=== PATIENT | female | born 1955 | race Caucasian/White ===

== ENCOUNTER 2023-11-12 16:18 | Outpatient (CLI) | payer MEDICARE, BC ==
[~2023-11-12 16:18] MED LIST: CALCIUM CHEWS; METH-375 PO; METH5TAB PO; PROP10TA10 PO; [UNRECOGNIZED DRUG - CODE] PO
== END 2023-11-12 23:59 | disposition home or self-care (01) ==
LOC: MRI 16:18
PROVIDERS: ATTEND Family Medicine Sports Medicine
DX: S83.242A Other tear of medial meniscus, current injury, left knee, initial encounter (principal); M17.12 Unilateral primary osteoarthritis, left knee; M25.462 Effusion, left knee; M85.68 Other cyst of bone, other site; M71.22 Synovial cyst of popliteal space [Baker], left knee; M25.562 Pain in left knee; X58.XXXA Exposure to other specified factors, initial encounter; Y93.89 Activity, other specified; Y92.89 Other specified places as the place of occurrence of the external cause; Y99.8 Other external cause status
CPT/HCPCS: 73721